=== PATIENT | female | born 1950 | race Asian ===

== ENCOUNTER 2017-06-22 18:51 | Inpatient (IN) | payer OTHER ==
[~2017-06-22] VITALS: Ht 152.4 cm; Wt 95.3 kg
[~2017-06-22 18:51] MED LIST: ALLO100T PO; AMLO10TA88 PO; ANAG0.5C3 PO; ATEN50TA PO; CLOP75TA2 PO; FOLI-43 PO; FOLI0.8T2 PO; FOSI20TA3 PO; FURO-149 PO; FURO40TA5 PO; HUM10VIA7 SUBCUT; INSU10VI4 SQ; LIP20 PO; METO100T3 PO; SEVE800T10 PO; [UNRECOGNIZED DRUG - OTHER]
[2017-06-22 18:57] VITALS: BP_SYST 177
[2017-06-22] MEDS ORDERED: NACL 0.9% 1,000 ML IV ONE (18:58)
[2017-06-22] MEDS ORDERED: ONDANSETRON HCL 4 MG/2 ML VIAL IVP ONE (19:00)
[2017-06-22 19:43] LABS: NEUTROPHILS # (AUTO) 12.8 K/uL (1.8-7.7); RED BLOOD CELL COUNT(AUTO) 3.94 MIL/uL (4.2-6.2)
[2017-06-22 19:45] LABS: BASOPHILS # (AUTO) 0.7 K/uL (0.0-0.2); BASOPHILS % (AUTO) 4.2 % (0.0-2.0); EOSINOPHILS % (AUTO) 2.8 % (0.0-4.0); HEMATOCRIT 36.2 % (36-48); HEMOGLOBIN 12.1 g/dL (12.0-16.0); LYMPHOCYTES # (AUTO) 2.2 K/uL (1.0-5.5); LYMPHOCYTES % (AUTO) 12.6 % (20.5-51.5); MEAN CORPUSCULAR HEMOGLOBIN 31 pg (27-31); MEAN CORPUSCULAR HGB CONC 33 % (32-36); MEAN CORPUSCULAR VOLUME 92 fL (79.0-98.0); MONOCYTES # (AUTO) 1.3 K/uL (0.0-1.0); MONOCYTES % (AUTO) 7.6 % (1.7-9.3); NEUTROPHILS % (AUTO) 72.8 % (40.0-70.0); PLATELET COUNT (AUTO) 155 K/uL (130-430); RED CELL DISTRIBUTION WIDTH 14.5 % (9.0-15.0); WHITE BLOOD COUNT (AUTO) 17.5 K/uL (4.8-10.8)
[2017-06-22 19:56] LABS: EOSINOPHILS # (AUTO) 0.5 K/uL (0.0-0.4)
[2017-06-22 20:14] LABS: INR 1.1 (0.8-1.2); PROTHROMBIN TIME 10.7 SECS (9.5-12.5)
[2017-06-22 20:15] LABS: ALBUMIN 3.6 g/dL (3.4-4.8); CALCIUM 10.4 mg/dL (8.4-11.0); POTASSIUM 4.1 mmol/L (3.5-5.1); TOTAL BILIRUBIN 0.4 mg/dL (0.0-1.0)
[2017-06-22 20:19] LABS: CREATININE 8.72 mg/dL (0.55-1.30)
[2017-06-22] MEDS ORDERED: cefTRIAXone 1 GM in D5W 50 ML IV ONE (21:30)
[2017-06-22] MEDS ORDERED: cefTRIAXone 1 GM VIAL ONE (21:38)
[2017-06-22 22:25] VITALS: BP_SYST 166
[2017-06-22] MEDS ORDERED: IPRATROPIUM/ALBUTEROL SULFATE 3 ML AMPUL.NEB INH SCH (22:35)
[2017-06-22 23:00] VITALS: BP_SYST 168
[2017-06-23] MEDS ORDERED: ACETAMINOPHEN 325 MG TABLET PO PRN (00:45)
[2017-06-23] MEDS ORDERED: VANCOMYCIN HCL 1 GM/NS PREMIX 250 ML IV SCH (00:45)
[2017-06-23] MEDS ORDERED: PROMETHAZINE 6.25 MG/ CODEINE 10 MG/ 5 ML PO PRN (00:45)
[2017-06-23] MEDS ORDERED: AZITHROMYCIN 250 MG TABLET PO SCH (00:50)
[2017-06-23] MEDS ORDERED: VANCOMYCIN HCL 1000 MG/VIAL IV ONE (00:52)
[2017-06-23] MEDS: DOCUSATE SODIUM 250 MG CAPSULE PO SCH ×3 (00:56→20:41)
[2017-06-23] MEDS ORDERED: TEMAZEPAM 7.5 MG CAPSULE PO PRN (01:00)
[2017-06-23] MEDS ORDERED: DEXTROSE 50% JECT 50 ML DISP.SYRIN IVP PRN (01:00)
[2017-06-23] MEDS ORDERED: ENOXAPARIN SODIUM 30 MG/0.3 ML SYRINGE SUBCUT SCH (01:00)
[2017-06-23 02:41] VITALS: BP_SYST 144
[2017-06-23] MEDS: INSULIN NPH/REGULAR 70-30, 100 UNITS/ML, 10 ML VIAL SUBCUT SCH (06:16)
[2017-06-23 07:55] VITALS: BP_SYST 132
[2017-06-23] MEDS ORDERED: FUROSEMIDE 40 MG TABLET PO SCH (09:00)
[2017-06-23] MEDS ORDERED: ATENOLOL 50 MG TABLET (TENORMIN) PO SCH (09:00)
[2017-06-23] MEDS: ANAGRELIDE HCL 0.5 MG PO SCH ×2 (09:00→22:28)
[2017-06-23] MEDS ORDERED: LISINOPRIL 20 MG TABLET PO SCH (09:00)
[2017-06-23] MEDS ORDERED: FOSINOPRIL SODIUM 20 MG TABLET PO SCH (09:00)
[2017-06-23] MEDS ORDERED: amLODIPine BESYLATE 10 MG TABLET PO SCH (09:00)
[2017-06-23] MEDS ORDERED: ALLO100T PO (09:58)
[2017-06-23] MEDS ORDERED: ATEN-41 PO (09:58)
[2017-06-23] MEDS: ATORVASTATIN 20 MG TABLET PO SCH (10:10)
[2017-06-23] MEDS: NEPHROVITE, (FOLIC ACID/VITAMIN B COMP W-C 1 TAB) PO SCH (10:10)
[2017-06-23] MEDS: CLOPIDOGREL BISULFATE 75 MG TABLET PO SCH (10:11)
[2017-06-23] MEDS: SEVELAMER HCL 800 MG TABLET PO SCH ×3 (10:11→18:20)
[2017-06-23] MEDS: FOLIC ACID 1 MG TABLET PO SCH (10:11)
[2017-06-23] MEDS ORDERED: CALC215T2 PO (10:33)
[2017-06-23] MEDS ORDERED: PANT20TA2 PO (10:33)
[2017-06-23] MEDS ORDERED: CHOL500013 PO (10:33)
[2017-06-23] MEDS ORDERED: NEPH PO (10:33)
[2017-06-23] MEDS ORDERED: ASPI-1063 PO (10:33)
[2017-06-23] MEDS ORDERED: IPRA3AMP9 INH (10:33)
[2017-06-23] MEDS ORDERED: SEVE800T8 PO (10:33)
[2017-06-23] MEDS ORDERED: ALBU8.5H8 INH (10:33)
[2017-06-23] MEDS ORDERED: NPH,100V11 SUBCUT (10:36)
[2017-06-23] MEDS ORDERED: INSU100V32 SUBCUT (10:36)
[2017-06-23] MEDS: INSULIN REGULAR, HUMAN 100 UNITS/ML, 10 ML VIAL (novoLIN R) SUBCUT PRN ×2 (12:04→20:49)
[2017-06-23 12:11] VITALS: BP_SYST 118
[2017-06-23 16:00] VITALS: BP_SYST 142
[2017-06-23] MEDS ORDERED: INSULIN NPH/REGULAR 70-30, 100 UNITS/ML, 10 ML VIAL SUBCUT SCH (17:00)
[2017-06-23] MEDS: cefTRIAXone 1 GM in D5W 50 ML IV SCH (18:21)
[2017-06-23 20:20] VITALS: BP_SYST 120
[2017-06-23] MEDS: ENOXAPARIN SODIUM 30 MG/0.3 ML SYRINGE SUBCUT SCH (20:49)
[2017-06-24] VITALS: BP_SYST 148
[2017-06-24] MEDS: INSULIN NPH/REGULAR 70-30, 100 UNITS/ML, 10 ML VIAL SUBCUT SCH (06:30)
[2017-06-24 07:19] LABS: CALCIUM 9.4 mg/dL (8.4-11.0); CREATININE 7.09 mg/dL (0.55-1.30); POTASSIUM 4.2 mmol/L (3.5-5.1); THYROID STIMULATING HORMONE 1.85 uIu/mL (0.34-4.82)
[2017-06-24 07:41] LABS: BASOPHILS # (AUTO) 0.2 K/uL (0.0-0.2); RED BLOOD CELL COUNT(AUTO) 3.43 MIL/uL (4.2-6.2)
[2017-06-24 07:57] LABS: BASOPHILS % (AUTO) 1.1 % (0.0-2.0); EOSINOPHILS # (AUTO) 0.8 K/uL (0.0-0.4); EOSINOPHILS % (AUTO) 5.5 % (0.0-4.0); HEMOGLOBIN 10.4 g/dL (12.0-16.0); LYMPHOCYTES % (AUTO) 13.5 % (20.5-51.5); MEAN CORPUSCULAR HEMOGLOBIN 30 pg (27-31); MEAN CORPUSCULAR HGB CONC 33 % (32-36); MEAN CORPUSCULAR VOLUME 93 fL (79.0-98.0); MONOCYTES # (AUTO) 1.4 K/uL (0.0-1.0); MONOCYTES % (AUTO) 9.9 % (1.7-9.3); NEUTROPHILS # (AUTO) 10.1 K/uL (1.8-7.7); RED CELL DISTRIBUTION WIDTH 14.8 % (9.0-15.0)
[2017-06-24 08:15] VITALS: BP_SYST 148
[2017-06-24] MEDS: SEVELAMER HCL 800 MG TABLET PO SCH ×3 (08:21→17:29)
[2017-06-24] MEDS: CLOPIDOGREL BISULFATE 75 MG TABLET PO SCH (08:55)
[2017-06-24] MEDS: FOLIC ACID 1 MG TABLET PO SCH (08:55)
[2017-06-24] MEDS: NEPHROVITE, (FOLIC ACID/VITAMIN B COMP W-C 1 TAB) PO SCH (08:55)
[2017-06-24] MEDS: ATORVASTATIN 20 MG TABLET PO SCH (08:55)
[2017-06-24] MEDS: DOCUSATE SODIUM 250 MG CAPSULE PO SCH ×3 (08:55→21:22)
[2017-06-24] MEDS: AZITHROMYCIN 250 MG TABLET PO SCH (08:55)
[2017-06-24] MEDS: ATENOLOL 50 MG TABLET (TENORMIN) PO SCH (08:58)
[2017-06-24] MEDS: ANAGRELIDE HCL 0.5 MG PO SCH ×2 (08:59→23:08)
[2017-06-24 09:59] LABS: PLATELET COUNT (AUTO) 232 K/uL (130-430)
[2017-06-24 10:01] LABS: WHITE BLOOD COUNT (AUTO) 14.5 K/uL (4.8-10.8)
[2017-06-24] MEDS: INSULIN REGULAR, HUMAN 100 UNITS/ML, 10 ML VIAL (novoLIN R) SUBCUT PRN ×3 (11:36→21:21)
[2017-06-24] MEDS ORDERED: MINERAL OIL 30 ML UDC PO ONE (11:45)
[2017-06-24] MEDS ORDERED: BISACODYL 5 MG TABLET.DR (DULCOLAX) PO PRN (11:45)
[2017-06-24 12:00] VITALS: BP_SYST 144
[2017-06-24] MEDS ORDERED: DOCUSATE SODIUM 250 MG CAPSULE PO ONE (12:30)
[2017-06-24 16:00] VITALS: BP_SYST 148
[2017-06-24] MEDS: cefTRIAXone 1 GM in D5W 50 ML IV SCH (17:29)
[2017-06-24 20:00] VITALS: BP_SYST 133
[2017-06-24] MEDS: ENOXAPARIN SODIUM 30 MG/0.3 ML SYRINGE SUBCUT SCH (21:23)
[2017-06-25 01:11] VITALS: BP_SYST 122
[2017-06-25 07:19] LABS: HEMATOCRIT 33.2 % (36-48); HEMOGLOBIN 10.9 g/dL (12.0-16.0); MEAN CORPUSCULAR HEMOGLOBIN 31 pg (27-31); MEAN CORPUSCULAR HGB CONC 33 % (32-36); MEAN CORPUSCULAR VOLUME 93 fL (79.0-98.0); PLATELET COUNT (AUTO) 155 K/uL (130-430); RED BLOOD CELL COUNT(AUTO) 3.58 MIL/uL (4.2-6.2); RED CELL DISTRIBUTION WIDTH 14.5 % (9.0-15.0)
[2017-06-25 07:56] LABS: ALBUMIN 2.9 g/dL (3.4-4.8); CALCIUM 9.4 mg/dL (8.4-11.0); POTASSIUM 5.2 mmol/L (3.5-5.1); TOTAL BILIRUBIN 0.4 mg/dL (0.0-1.0)
[2017-06-25 08:00] VITALS: BP_SYST 136
[2017-06-25 08:05] LABS: CREATININE 9.49 mg/dL (0.55-1.30)
[2017-06-25] MEDS: DOCUSATE SODIUM 250 MG CAPSULE PO SCH ×4 (09:00→21:00)
[2017-06-25] MEDS: ATENOLOL 50 MG TABLET (TENORMIN) PO SCH (09:00)
[2017-06-25 11:00] LABS: WHITE BLOOD COUNT (AUTO) 13.8 K/uL (4.8-10.8)
[2017-06-25 11:02] LABS: BASOPHILS % (MANUAL) 0 % (0-2); EOSINOPHILS % (MANUAL) 1 % (0-7); LYMPHOCYTES % (MANUAL) 17 % (20-46); MONOCYTES % (MANUAL) 8 % (0-11)
[2017-06-25 12:16] VITALS: BP_SYST 150
[2017-06-25] MEDS: ANAGRELIDE HCL 0.5 MG PO SCH ×2 (12:30→20:21)
[2017-06-25] MEDS: NEPHROVITE, (FOLIC ACID/VITAMIN B COMP W-C 1 TAB) PO SCH (12:31)
[2017-06-25] MEDS: SEVELAMER HCL 800 MG TABLET PO SCH ×3 (12:31→17:01)
[2017-06-25] MEDS: AZITHROMYCIN 250 MG TABLET PO SCH (12:31)
[2017-06-25] MEDS: ATORVASTATIN 20 MG TABLET PO SCH (12:31)
[2017-06-25] MEDS: FOLIC ACID 1 MG TABLET PO SCH (12:32)
[2017-06-25] MEDS: CLOPIDOGREL BISULFATE 75 MG TABLET PO SCH (12:32)
[2017-06-25 16:32] VITALS: BP_SYST 155
[2017-06-25] MEDS: INSULIN REGULAR, HUMAN 100 UNITS/ML, 10 ML VIAL (novoLIN R) SUBCUT PRN ×2 (16:57→21:42)
[2017-06-25] MEDS: INSULIN NPH 100 UNITS/ML 10 ML VIAL SUBCUT SCH (16:58)
[2017-06-25] MEDS: cefTRIAXone 1 GM in D5W 50 ML IV SCH (16:59)
[2017-06-25 17:54] VITALS: BP_SYST 155
[2017-06-25 19:58] VITALS: BP_SYST 138
[2017-06-25] MEDS: ENOXAPARIN SODIUM 30 MG/0.3 ML SYRINGE SUBCUT SCH (20:20)
[2017-06-26 00:46] VITALS: BP_SYST 116
[2017-06-26] MEDS: INSULIN NPH 100 UNITS/ML 10 ML VIAL SUBCUT SCH ×2 (06:56→18:09)
[2017-06-26 07:40] LABS: CALCIUM 9.5 mg/dL (8.4-11.0); CREATININE 6.61 mg/dL (0.55-1.30); POTASSIUM 4.1 mmol/L (3.5-5.1)
[2017-06-26 08:00] VITALS: BP_SYST 148
[2017-06-26 08:17] LABS: HEMATOCRIT 33.4 % (36-48); MEAN CORPUSCULAR HEMOGLOBIN 31 pg (27-31); MEAN CORPUSCULAR HGB CONC 33 % (32-36); MEAN CORPUSCULAR VOLUME 94 fL (79.0-98.0); RED BLOOD CELL COUNT(AUTO) 3.57 MIL/uL (4.2-6.2); RED CELL DISTRIBUTION WIDTH 14.6 % (9.0-15.0); WHITE BLOOD COUNT (AUTO) 16.6 K/uL (4.8-10.8)
[2017-06-26 09:47] LABS: BASOPHILS % (MANUAL) 0 % (0-2); EOSINOPHILS % (MANUAL) 2 % (0-7); LYMPHOCYTES % (MANUAL) 8 % (20-46); MONOCYTES % (MANUAL) 13 % (0-11)
[2017-06-26 09:51] LABS: PLATELET COUNT (AUTO) 218 K/uL (130-430)
[2017-06-26] MEDS: ATORVASTATIN 20 MG TABLET PO SCH (09:53)
[2017-06-26] MEDS: AZITHROMYCIN 250 MG TABLET PO SCH (09:53)
[2017-06-26] MEDS: CLOPIDOGREL BISULFATE 75 MG TABLET PO SCH (09:53)
[2017-06-26] MEDS: NEPHROVITE, (FOLIC ACID/VITAMIN B COMP W-C 1 TAB) PO SCH (09:54)
[2017-06-26] MEDS: FOLIC ACID 1 MG TABLET PO SCH (09:54)
[2017-06-26] MEDS: DOCUSATE SODIUM 250 MG CAPSULE PO SCH ×3 (09:54→21:08)
[2017-06-26] MEDS: SEVELAMER HCL 800 MG TABLET PO SCH ×3 (09:56→18:04)
[2017-06-26] MEDS: ATENOLOL 50 MG TABLET (TENORMIN) PO SCH (09:56)
[2017-06-26] MEDS: ANAGRELIDE HCL 0.5 MG PO SCH ×2 (09:56→21:09)
[2017-06-26] MEDS: INSULIN REGULAR, HUMAN 100 UNITS/ML, 10 ML VIAL (novoLIN R) SUBCUT PRN ×3 (11:54→21:17)
[2017-06-26 12:41] VITALS: BP_SYST 145
[2017-06-26 16:00] VITALS: BP_SYST 123
[2017-06-26] MEDS: PIPERACILLIN/TAZO 2.25G/DEX-IS 50 ML IV SCH ×2 (19:03→23:08)
[2017-06-26] MEDS: ENOXAPARIN SODIUM 30 MG/0.3 ML SYRINGE SUBCUT SCH (21:08)
[2017-06-27 00:42] VITALS: BP_SYST 119
[2017-06-27 00:59] VITALS: BP_SYST 105
[2017-06-27] MEDS: PIPERACILLIN/TAZO 2.25G/DEX-IS 50 ML IV SCH ×3 (05:17→18:43)
[2017-06-27] MEDS: ALBUTEROL SULFATE 0.083% 2.5 MG/3 ML VIAL.NEB INH PRN (05:31)
[2017-06-27] MEDS: INSULIN NPH 100 UNITS/ML 10 ML VIAL SUBCUT SCH ×2 (06:47→17:26)
[2017-06-27] MEDS: SEVELAMER HCL 800 MG TABLET PO SCH ×3 (08:00→18:43)
[2017-06-27 08:03] LABS: BASOPHILS # (AUTO) 0.1 K/uL (0.0-0.2); BASOPHILS % (AUTO) 0.9 % (0.0-2.0); EOSINOPHILS # (AUTO) 0.6 K/uL (0.0-0.4); EOSINOPHILS % (AUTO) 4.2 % (0.0-4.0); HEMOGLOBIN 11.1 g/dL (12.0-16.0); LYMPHOCYTES # (AUTO) 2.5 K/uL (1.0-5.5); LYMPHOCYTES % (AUTO) 17.1 % (20.5-51.5); MEAN CORPUSCULAR HEMOGLOBIN 31 pg (27-31); MEAN CORPUSCULAR HGB CONC 33 % (32-36); MONOCYTES # (AUTO) 1.6 K/uL (0.0-1.0); MONOCYTES % (AUTO) 11.1 % (1.7-9.3); NEUTROPHILS # (AUTO) 9.9 K/uL (1.8-7.7); PLATELET COUNT (AUTO) 178 K/uL (130-430); RED BLOOD CELL COUNT(AUTO) 3.63 MIL/uL (4.2-6.2); RED CELL DISTRIBUTION WIDTH 14.5 % (9.0-15.0); WHITE BLOOD COUNT (AUTO) 14.7 K/uL (4.8-10.8)
[2017-06-27 08:15] VITALS: BP_SYST 149
[2017-06-27 08:21] LABS: CALCIUM 9.7 mg/dL (8.4-11.0); PHOSPHORUS 6.3 mg/dL (2.7-4.5); POTASSIUM 4.9 mmol/L (3.5-5.1)
[2017-06-27 08:26] LABS: MEAN CORPUSCULAR VOLUME 92 fL (79.0-98.0)
[2017-06-27 09:00] LABS: CREATININE 9.28 mg/dL (0.55-1.30)
[2017-06-27] MEDS: DOCUSATE SODIUM 250 MG CAPSULE PO SCH ×2 (09:00→22:03)
[2017-06-27] MEDS: CLOPIDOGREL BISULFATE 75 MG TABLET PO SCH (09:00)
[2017-06-27] MEDS: ATENOLOL 50 MG TABLET (TENORMIN) PO SCH (09:00)
[2017-06-27] MEDS: ANAGRELIDE HCL 0.5 MG PO SCH ×2 (09:00→22:03)
[2017-06-27] MEDS: AZITHROMYCIN 250 MG TABLET PO SCH (09:00)
[2017-06-27] MEDS: ATORVASTATIN 20 MG TABLET PO SCH (09:00)
[2017-06-27] MEDS: NEPHROVITE, (FOLIC ACID/VITAMIN B COMP W-C 1 TAB) PO SCH (09:00)
[2017-06-27] MEDS: FOLIC ACID 1 MG TABLET PO SCH (09:00)
[2017-06-27 10:04] LABS: NEUTROPHILS % (AUTO) 66.7 % (40.0-70.0)
[2017-06-27 12:00] VITALS: BP_SYST 153
[2017-06-27] MEDS: INSULIN REGULAR, HUMAN 100 UNITS/ML, 10 ML VIAL (novoLIN R) SUBCUT PRN ×2 (12:18→17:27)
[2017-06-27] MEDS ORDERED: AZITHROMYCIN 250 MG TABLET PO ONE (15:00)
[2017-06-27] MEDS ORDERED: AZITHROMYCIN 500 MG in NS 250 ML IV ONE (15:30)
[2017-06-27 16:00] VITALS: BP_SYST 144
[2017-06-27 20:00] VITALS: BP_SYST 127
[2017-06-27] MEDS: ENOXAPARIN SODIUM 30 MG/0.3 ML SYRINGE SUBCUT SCH (22:04)
[2017-06-28] MEDS: PIPERACILLIN/TAZO 2.25G/DEX-IS 50 ML IV SCH ×3 (00:02→11:30)
[2017-06-28 00:20] VITALS: BP_SYST 103
[2017-06-28] MEDS: ALBUTEROL SULFATE 0.083% 2.5 MG/3 ML VIAL.NEB INH PRN (05:14)
[2017-06-28] MEDS: INSULIN NPH 100 UNITS/ML 10 ML VIAL SUBCUT SCH (06:51)
[2017-06-28 07:15] LABS: ALBUMIN 2.9 g/dL (3.4-4.8); CALCIUM 9.5 mg/dL (8.4-11.0); CREATININE 7.12 mg/dL (0.55-1.30); PHOSPHORUS 6.1 mg/dL (2.7-4.5); POTASSIUM 4.7 mmol/L (3.5-5.1); TOTAL BILIRUBIN 0.4 mg/dL (0.0-1.0)
[2017-06-28 07:46] VITALS: BP_SYST 150
[2017-06-28 08:00] VITALS: BP_SYST 150
[2017-06-28 08:45] LABS: BASOPHILS % (AUTO) 1.8 % (0.0-2.0); EOSINOPHILS % (AUTO) 3.4 % (0.0-4.0); HEMATOCRIT 34.2 % (36-48); HEMOGLOBIN 10.9 g/dL (12.0-16.0); LYMPHOCYTES % (AUTO) 25.8 % (20.5-51.5); MEAN CORPUSCULAR HEMOGLOBIN 30 pg (27-31); MEAN CORPUSCULAR HGB CONC 32 % (32-36); MEAN CORPUSCULAR VOLUME 94 fL (79.0-98.0); PLATELET COUNT (AUTO) 205 K/uL (130-430); RED BLOOD CELL COUNT(AUTO) 3.65 MIL/uL (4.2-6.2); RED CELL DISTRIBUTION WIDTH 14.7 % (9.0-15.0)
[2017-06-28] MEDS: SEVELAMER HCL 800 MG TABLET PO SCH ×2 (08:51→11:30)
[2017-06-28] MEDS: NEPHROVITE, (FOLIC ACID/VITAMIN B COMP W-C 1 TAB) PO SCH (08:51)
[2017-06-28] MEDS: DOCUSATE SODIUM 250 MG CAPSULE PO SCH (08:51)
[2017-06-28] MEDS: FOLIC ACID 1 MG TABLET PO SCH (08:51)
[2017-06-28] MEDS: ATENOLOL 50 MG TABLET (TENORMIN) PO SCH (08:52)
[2017-06-28] MEDS: CLOPIDOGREL BISULFATE 75 MG TABLET PO SCH (08:52)
[2017-06-28] MEDS: ATORVASTATIN 20 MG TABLET PO SCH (08:58)
[2017-06-28] MEDS: ANAGRELIDE HCL 0.5 MG PO SCH (08:58)
[2017-06-28] MEDS: INSULIN REGULAR, HUMAN 100 UNITS/ML, 10 ML VIAL (novoLIN R) SUBCUT PRN (11:30)
[2017-06-28 12:10] VITALS: BP_SYST 126
[2017-06-28 12:51] LABS: WHITE BLOOD COUNT (AUTO) 10.6 K/uL (4.8-10.8)
[2017-06-28] MEDS ORDERED: AZITHROMYCIN 250 MG TABLET PO ONE (13:30)
[2017-06-28] MEDS ORDERED: AZIT250T PO (13:42)
[2017-06-28] MEDS ORDERED: IPRA4AER INH (13:43)
[2017-06-28 15:12] VITALS: BP_SYST 126
== END 2017-06-28 16:20 | disposition home or self-care (01) | DRG 871 ==
LOC: SED 18:51 → STU 21:48 → SMU 06-25 17:49
PROVIDERS: ADMIT Internal Medicine; ATTEND Internal Medicine
PROC: 5A1D70Z Performance of Urinary Filtration, Intermittent, Less than 6 Hours Per Day (ICD-10-PCS; principal; 2017-06-23)
PROC: 5A1D70Z Performance of Urinary Filtration, Intermittent, Less than 6 Hours Per Day (ICD-10-PCS; 2017-06-24)
PROC: 5A1D70Z Performance of Urinary Filtration, Intermittent, Less than 6 Hours Per Day (ICD-10-PCS; 2017-06-27)
DX: A41.9 Sepsis, unspecified organism (principal); N18.6 End stage renal disease; I13.2 Hypertensive heart and chronic kidney disease with heart failure and with stage 5 chronic kidney disease, or end stage renal disease; J18.9 Pneumonia, unspecified organism; E11.22 Type 2 diabetes mellitus with diabetic chronic kidney disease; I50.30 Unspecified diastolic (congestive) heart failure; Z68.41 Body mass index [BMI] 40.0-44.9, adult; D63.8 Anemia in other chronic diseases classified elsewhere; E66.9 Obesity, unspecified; E78.00 Pure hypercholesterolemia, unspecified; J45.909 Unspecified asthma, uncomplicated; M10.9 Gout, unspecified; E78.5 Hyperlipidemia, unspecified; J42 Unspecified chronic bronchitis; Z79.4 Long term (current) use of insulin; Z82.49 Family history of ischemic heart disease and other diseases of the circulatory system; Z83.3 Family history of diabetes mellitus; Z99.2 Dependence on renal dialysis; Z79.899 Other long term (current) drug therapy
CPT/HCPCS: 36415; 70486-TC; 71045; 71250-TC; 76700-TC; 78226; 80048; 80053; 80061; 82550-TC; 82962; 83605; 83690-TC; 84100-TC; 84443-TC; 84484; 85007; 85025; 85027; 85610-TC; 85730-TC; 87040-TC; 87081; 90935; 90937; 93005; 93306; 93970; 94640; 96365; 96375; 97110-GP; 97116-GP; 97530-GP; 99285; A9537; J0696; J1650; J1815; J2405; J2543; J3370; J7030; J7050; J7060; Q0144

== ENCOUNTER 2018-07-08 21:35 | Emergency (ER) | payer OTHER ==
[~2018-07-08] VITALS: Ht 157.5 cm; Wt 81.6 kg
[~2018-07-08 21:35] MED LIST changes: +ALBU8.5H8 INH; -AMLO10TA88 PO; +ASPI-1153 PO; +ATEN-41 PO; -ATEN50TA PO; +CHOL500013 PO; -FOLI0.8T2 PO; -FOSI20TA3 PO; -FURO-149 PO; -FURO40TA5 PO; -HUM10VIA7 SUBCUT; +INSU100V7 SUBCUT; +INSU100V9 SUBCUT; -INSU10VI4 SQ; +IPRA3AMP9 INH; -METO100T3 PO; +NEPH PO; +ROCPM1 IV; -SEVE800T10 PO; +SEVE800T8 PO; -[UNRECOGNIZED DRUG - OTHER]
[2018-07-08 21:40] VITALS: BP_SYST 167
--- NOTE | 2018-07-08 21:45 | NUR ---
Pt BIB BLS C/O uncontrolled bleed from dialysis access on LT upper arm. Pt was at home and undressed her bandage and reported spurting blood from access. Pt activated 911 and EMS states estimated 200cc of blood loss on scene. Pressure bandage applied on scene not effective. Vital signs are stable will continue to monitor.
--- NOTE | 2018-07-08 21:46 | NUR ---
Placed in room 3 . Placed on group sales representative, blood pressure machine and pulse oximeter. To gown for exam. Side rails up.
--- NOTE | 2018-07-08 21:48 | NUR ---
ER Dr. Garcia at bedside examining patient.
--- NOTE | 2018-07-08 21:50 | NUR ---
ER at bedside for examination. Dressing was removed and blood was spurting from dialysis access. Surgicel guaze, 2x2 guaze and 4x4 guaze applied to the site. Coban was used to apply pressure to the site. Bleeding has controlled at this time, will continue to monitor. Juan David has been notifed and requested to monitor site for bleeding for one hour and to recontact.
--- NOTE | 2018-07-08 23:20 | NUR ---
Dressing has been removed to reassess bleeding. Dialysis access is still bleeding after pressure dressing has been applied. Dr. Garcia has been notified of the situation and wound has been redressed.
[2018-07-09] MEDS ORDERED: LIDOCAINE/EPI 1% 1:100000 20 ML VIAL IJ ONE (00:15)
[2018-07-09] MEDS ORDERED: LIDOCAINE/EPI 1% 1:100000 20 ML VIAL INJ ONE (00:22)
--- NOTE | 2018-07-09 00:28 | NUR ---
Dr. Garcia applied sutures using sterile technique. Edges well approximated. Site cleansed with normal saline. Dressing of gauze applied to site. No bleeding noted. Pt tolerated well.
[2018-07-09 01:17] VITALS: BP_SYST 167
== END 2018-07-09 00:28 | disposition home or self-care (01) ==
LOC: SED 21:35
DX: T82.838A Hemorrhage due to vascular prosthetic devices, implants and grafts, initial encounter (principal); J44.9 Chronic obstructive pulmonary disease, unspecified; I12.9 Hypertensive chronic kidney disease with stage 1 through stage 4 chronic kidney disease, or unspecified chronic kidney disease; E11.22 Type 2 diabetes mellitus with diabetic chronic kidney disease; N18.9 Chronic kidney disease, unspecified; Z79.82 Long term (current) use of aspirin; Z79.899 Other long term (current) drug therapy; Y83.2 Surgical operation with anastomosis, bypass or graft as the cause of abnormal reaction of the patient, or of later complication, without mention of misadventure at the time of the procedure; Y92.89 Other specified places as the place of occurrence of the external cause
CPT/HCPCS: 99283; 99284